=== PATIENT | male | born 1995 | race Caucasian/White ===

== ENCOUNTER 2018-02-09 08:55 | Emergency (ER) | payer MEDICAID ==
[~2018-02-09] VITALS: Ht 180.3 cm; Wt 61.3 kg
[2018-02-09 09:53] LABS: UA SPECIFIC GRAVITY 1.025 (1.005-1.035); microscopic required? YES; urine erythrocyte 3+ (NEGATIVE)
[2018-02-09 10:35] LABS: BASOPHIL % 1.1 % (0-2); PLATELET COUNT 288 x10^3mcL (130-400)
[2018-02-09 10:37] LABS: CHLORIDE SERUM 103 mmol/L (98-107); CREATININE SERUM 0.8 mg/dL (0.7-1.3); GFR1 > 60 mL/min; GLUCOSE SERUM 94 mg/dL (74-106); POTASSIUM SERUM 4.3 mmol/L (3.5-5.1); SODIUM SERUM 136 mmol/L (136-145)
[2018-02-09 12:16] VITALS: BP 119/61
== END 2018-02-09 12:15 | disposition home or self-care (01) ==
LOC: ED 08:55
PROVIDERS: Emergency Medicine
DX: M54.2 Cervicalgia (principal); S20.212A Contusion of left front wall of thorax, initial encounter; S20.211A Contusion of right front wall of thorax, initial encounter; S30.810D Abrasion of lower back and pelvis, subsequent encounter; W01.0XXA Fall on same level from slipping, tripping and stumbling without subsequent striking against object, initial encounter; Y93.89 Activity, other specified; Y92.89 Other specified places as the place of occurrence of the external cause; Y99.8 Other external cause status
CPT/HCPCS: 36415; J7030

== ENCOUNTER 2018-09-09 11:12 | Emergency (ER) | payer MEDICAID ==
[~2018-09-09] VITALS: Ht 180.3 cm; Wt 59.9 kg
[2018-09-09 11:21] VITALS: Ht 180.3 cm; Wt 59.9 kg
[2018-09-09 13:14] LABS: BASOPHIL % 0.2 % (0-2); PLATELET COUNT 161 x10^3mcL (130-400)
[2018-09-09 13:15] LABS: CALCIUM 8.9 mg/dL (8.5-10.1); CHLORIDE SERUM 97 mmol/L (98-107); GFR1 > 60 mL/min; GLUCOSE SERUM 105 mg/dL (74-106); POTASSIUM SERUM 3.5 mmol/L (3.5-5.1); SODIUM SERUM 134 mmol/L (136-145)
[2018-09-09 13:19] LABS: ALBUMIN 3.5 g/dL (3.4-5.0); ALKALINE PHOSPHATASE 47 U/L (46-116); ALT/SGPT 24 U/L (16-63); AST/SGOT 19 U/L (15-37); BILIRUBIN TOTAL 0.4 mg/dL (0.20-1.00); TOTAL PROTEIN, SERUM 7.5 g/dL (6.4-8.2)
[2018-09-09 14:04] VITALS: BP 129/81
== END 2018-09-09 14:04 | disposition home or self-care (01) ==
LOC: ED 11:12
PROVIDERS: Emergency Medicine
DX: B34.9 Viral infection, unspecified (principal); A08.4 Viral intestinal infection, unspecified
CPT/HCPCS: 36415; Q0162